=== PATIENT | male | born 1975 | race Caucasian/White ===

== ENCOUNTER → 2020-08-13 15:58 | Outpatient (CLI) | payer OTHER, MEDICAID, SELFPAY ==
--- NOTE | 2020-08-13 16:14 | MRI_ITS ---
HISTORY: neck and arm pain- left side TECHNIQUE: Routine MRI of the cervical spine was performed without IV contrast. COMPARISON: None FINDINGS: Number of images including paperwork: 250 ALIGNMENT: Unremarkable. VERTEBRAL BODIES: Unremarkable. INTERVERTEBRAL DISCS, SPINAL CANAL AND FORAMINA: C2-3: No significant disc bulging, canal or foraminal stenosis. C3-4: No significant disc bulging, canal or foraminal stenosis. C4-5: No significant disc bulging, canal or foraminal stenosis. C5-6: Mild disc bulging. Bilateral uncovertebral spurring moderate to severe left foraminal stenosis. No significant canal stenosis. C6-7: Mild disc bulging. Bilateral uncovertebral spurring with mild to moderate right and severe left foraminal stenosis. No significant canal stenosis. C7-T1: No significant disc bulging, canal or foraminal stenosis. Bilateral perineural cysts. SPINAL CORD: Unremarkable. MRI/Spine Cervical (Routine) IMPRESSION: No acute findings. Cervical spondylosis, as detailed. at 0645 Reported and signed by: Nory Dubon MD Electronically Signed: Nory Dubon MD at 6:45 EST Tel , Service support ,
--- NOTE | 2020-08-13 16:15 | RAD_ITS ---
STUDY: X-RAY - PELVIS AND LEFT HIP REASON FOR EXAM: Male, 45 years old. left hip pain TECHNIQUE: 3 views of the pelvis and hip. COMPARISON: None. FINDINGS: There is a non-specific bowel gas pattern. Normal visualized soft tissue structures. Normal bilateral iliac wings, sacroiliac joints and visualized sacrum. Normal bilateral superior and inferior pubic rami. Normal pubic symphysis. Normal bilateral ischial tuberosities. Normal visualized femoral head. Normal acetabulum. Normal hip joint. RAD/HIP, UNI W/ Pelvis 2-3 Views IMPRESSION: Normal x-ray examination of the pelvis and hip. Electronically Signed: Rolan Michaels MD at 16:45 EST Tel , Service support ,
--- NOTE | 2020-08-13 16:15 | MRI_ITS ---
HISTORY: back pain, leg pain- left side COMPARISON: None TECHNIQUE: Multiplanar, multisequence MRI of the lumbar spine without IV contrast. FINDINGS: No bone marrow edema or suspicious bone lesion. Conus ends at L1. Moderate discogenic degenerative changes at T10-11 and T11-12. T12-L1: No significant disc bulge, canal or foraminal stenosis. L1-L2: Mild disc space narrowing. Schmorl's node noted in the superior endplate of L2. No significant posterior disc bulging. No canal or foraminal stenosis. L2-L3: Disc desiccation with mild disc space narrowing and minimal disc bulging. Facet arthropathy. No significant canal or foraminal stenosis. Bilateral perineural cysts. L3-L4: No significant disc space narrowing, disc bulging, canal or foraminal stenosis. Facet arthropathy. L4-L5: Mild disc space narrowing with central disc protrusion. Facet arthropathy. Mild effacement of the anterior thecal sac. No significant foraminal stenosis. L5-S1: Advanced disc space narrowing with posterior disc osteophyte complex. Facet arthropathy. No significant canal stenosis. Mild bilateral foraminal narrowing without MR evidence of nerve root impingement. Perineural cysts noted at S2 on the left. MRI/Spine Lumbar (Routine) IMPRESSION: 1. No acute findings. 2. Lumbar spondylosis, as detailed. at 0800 Reported and signed by: Nory Dubon MD Electronically Signed: Nory Dubon MD at 8:00 EST Tel , Service support ,
== END ==
PROVIDERS: Referring Provider Anesthesiology Pain Medicine; Visit Provider Anesthesiology Pain Medicine
DX: M54.2 Cervicalgia (principal); M54.9 Dorsalgia, unspecified; M79.603 Pain in arm, unspecified; M79.606 Pain in leg, unspecified; M25.552 Pain in left hip
CPT/HCPCS: 72141; 72148; 73502

== ENCOUNTER → 2020-09-17 10:14 | Outpatient (CLI) | payer OTHER, MEDICAID, SELFPAY ==
[2020-09-17 11:09] LABS: Amphetamine Urine VISTA NEGATIVE (<1000 ng/mL); Barbiturate Urine VISTA NEGATIVE (< 200 ng/mL); Benzodiazepine Urine VISTA POSITIVE (< 200 ng/mL); Cocaine Urine VISTA NEGATIVE (< 300 ng/mL); Ecstacy Urine VISTA NEGATIVE (< 500 ng/mL); Methadone Urine VISTA NEGATIVE (< 300 ng/mL); PCP Urine VISTA NEGATIVE (< 25 ng/mL); THC Urine VISTA NEGATIVE (< 50 ng/mL); Vista UDS pH Range 6
== END ==
PROVIDERS: Referring Provider Anesthesiology Pain Medicine; Visit Provider Anesthesiology Pain Medicine
DX: F11.20 Opioid dependence, uncomplicated (principal)
CPT/HCPCS: 80307

== ENCOUNTER → 2020-10-12 11:54 | Outpatient (CLI) | payer OTHER, MEDICAID, SELFPAY ==
[2020-10-12 14:59] LABS: Absolute Lymphocyte Count 2.34 X10^3/uL (0.83-4.51); Absolute Neutrophil Count 4.9 X10^3/uL (2.0-7.7); Basophil# 0.05 X10^3/uL; Basophil% 0.6 % (0-1); Eosinophil# 0.17 X10^3/uL; Eosinophils% 2.1 % (0-5); Hematocrit 45.5 % (40-54); Hemoglobin 14.7 g/dL (13.0-16.5); Lymphocyte # 2.34 X10^3/ul (4.0); Lymphocyte % 28.5 % (19-41); Mean Corp Hgb Conc 32.3 g/dL (32-36); Mean Corpuscular Hgb 30.7 pg (27.0-32.0); Mean Platelet Vol. 10.5 fl (6.2-12.0); Monocyte# 0.75 X10^3/uL; Monocyte% 9.1 % (0-10); NRBC Flagged by Analyzer 0 % (0-5); Neutrophil # 4.86 X10^3/uL (2.7-7.7); Neutrophil % 59.3 % (47-70); Platelet Count 269 K/mm3 (150-450); RBC Distribution Width CV 13.2 % (11.6-14.6); RBC Distribution Width SD 46.5 fl (35.1-43.9); Red Blood Count 4.79 M/mm3 (4.6-6.2); White Blood Count 8.2 K/mm3 (4.4-11.0)
[2020-10-12 15:06] LABS: Erythrocyte Sedimentation Rate 2 mm/hr (0-20)
[2020-10-12 15:34] LABS: ALB/GLOB Ratio 1.4 RATIO (0.9-2.4); AST(SGOT) 32 U/L (15-37); Alanine Aminotransfer ALT/SGPT 43 U/L (16-61); Albumin, Serum 4.2 g/dL (3.2-5.0); Alkaline Phosphatase 73 U/L (45-117); Anion Gap 6 (5-15); BUN 12 mg/dL (7-18); BUN/Creat Ratio 11.9 RATIO (10-20); CRP < 2.90 mg/L (0.0-3.0); Calcium,Total 8.8 mg/dL (8.5-10.1); Chloride 105 mmol/L (98-107); Creatinine, Serum 1.01 mg/dL (0.70-1.30); EST Glomerular Filtration Rate 86 mL/min (>60); Est Glom Filt Rate - Afr Amer 104 mL/min (>60); Globulin 2.9 g/dL (2.2-4.2); Glucose 83 mg/dL (74-106); Potassium 3.6 mmol/L (3.5-5.1); Protein, Total 7.1 g/dL (6.4-8.2); Rheumatoid Factor < 10.0 IU/mL (<15); Sodium Level 140 mmol/L (136-145)
[2020-10-12 15:43] LABS: Hepatitis B Surface Antibody Non-Reactive; Hepatitis B Surface Antigen Non-Reactive (Nonreactive); Hepatitis C Antibody Non-Reactive (Nonreactive)
[2020-10-14 15:46] LABS: ANTINUCLEAR ANTIBODIES DIRECT Negative (Negative)
[2020-10-16 15:05] LABS: CCP IgG Antibodies 4 units (0-19); Hepatitis B Core AB IgM Negative (Negative)
== END ==
PROVIDERS: Referring Provider Internal Medicine Rheumatology; Visit Provider Internal Medicine Rheumatology
DX: M06.4 Inflammatory polyarthropathy (principal); M47.897 Other spondylosis, lumbosacral region; M48.061 Spinal stenosis, lumbar region without neurogenic claudication; M50.30 Other cervical disc degeneration, unspecified cervical region; F41.9 Anxiety disorder, unspecified; R51.9 Headache, unspecified
CPT/HCPCS: 36415; 80053; 85025; 85652; 86038; 86140; 86200; 86431; 86705; 86706; 86803; 87340

== ENCOUNTER → 2020-11-30 10:05 | Outpatient (CLI) | payer OTHER, MEDICAID, SELFPAY ==
[2020-11-02 10:25] VITALS: BMI 24.2
--- NOTE | 2020-11-30 10:06 | MRI_ITS ---
STUDY: MRI THORACIC SPINE WITHOUT CONTRAST REASON FOR EXAM: Male, 45 years old. pain TECHNIQUE: Standardized fat and water weighted pulse sequences were obtained in the sagittal and axial planes. COMPARISON: None. FINDINGS: Normal kyphosis of the thoracic spine. There is no substantial scoliosis. T1-2, T2-3, T3-4, T4-5, T5-6, T6-7, T7-8, T8-9, T9-10, T10-11, T11-12: T3/T4, there is a mild bilobed disc protrusion which produces mild spinal stenosis but no cord compression. At T5/T6 there is a 6 mild bilobed disc protrusion asymmetric to the left which produces mild spinal stenosis but no cord compression. At T6/T7 there is a mild broad disc protrusion which produces mild spinal stenosis but no cord compression. At T8/T9, there is a mild bilobed disc protrusion which produces mild spinal stenosis but no cord compression. At T10/T11 and T11/T12 there mild bilobed disc protrusion which produces mild spinal stenosis but no cord compression. Normal visualized thoracic cord. Normal conus medullaris that terminates at the L1.. The soft tissue structures are unremarkable. MRI/Spine Thoracic (Routine) IMPRESSION: Mild degenerative disc disease at multiple levels but no cord compression. Electronically Signed: Rloan Michaels MD at 12:55 EDT Tel , Service support ,
== END ==
PROVIDERS: Referring Provider Orthopaedic Surgery; Visit Provider Orthopaedic Surgery
DX: M54.6 Pain in thoracic spine (principal); G89.29 Other chronic pain
CPT/HCPCS: 72146

== ENCOUNTER 2021-01-10 09:30 | Outpatient (RCR) | payer OTHER, MEDICAID, SELFPAY ==
--- NOTE | 2020-10-12 11:30 | HP.PTEVAL_ITS ---
Patient's Visit Information MARY VASQUEZ is a 45 year old M referred to Physical Therapy by Dr. Ketan Chand MD with a diagnosis of NECK AND BACK PAIN. Date of Evaluation: 10/12/20 Physical Therapist: Ana Reyes PT, Cert MDT - Visit Plan Frequency: 1x/Week Duration: 2 Months Plan: NO TRACTION. MODALITIES NEEDED. PATIENT HAS AN HOUR DRIVE AND CAN ONLY COME ONE TIME/WK. POSTURE CORRECTION/STRENGTHENING, INSTRUCTION IN APPROPRIATE BODY MECHANICS AND ACTIVITY MODIFICATIONS. DLS STARTING WITH A NEUTRAL SPINE PROGRESSING ROM TOLERATED. JAVED UE AND LE ROM, STRETCHING AND STRENGTHENING. HEP INSTRUCTION. - Subjective Work/Leisure: [employer]. LIFTING UP TO ABOUT 20 LBS. MOSTLY STANDING. FAST PACED. CURRENTLY NOT OFF WORK. Disability: NO. Present symptoms: NECK PAIN. UPPER BACK PAIN. L UE PAIN, NUMBNESS AND TINGLING IN WHOLE ARM. LOW BACK PAIN. NO LONGER HAVING LEG SX'S. JAVED SHLD PAIN. Present since: ABOUT 10 YEARS AGO. Pain Scale: WORST 9/10, LEAST 2/10. Currently: 3/10 UPPER BACK, LOW BACK AND SHOULDERS. Commenced as a result of: WORK. Symptoms at onset: LOW BACK PAIN. Worse: WHEN I MOVE MY NECK A CERTAIN WAY, DRIVING, SITTING, ACTIVITY, LOOKING DOWN, LOOKING UP CAUSES A SHOT OF PAIN THROUGH MY ARM, BENDING. Better: MASSAGE THERAPY HELPED UPPER BACK TODAY BUT NOT LOWER BACK, INJECTIONS AND PILLS. Disturbed sleep: YES. Previous history/Previous treatment: PAIN MGMT. NECK AND LOW BACK INJECTIONS (LAST INJECTIONS WERE IN JUL 2020), NO SPINE SURGERY. PT IN THE PAST IN [facility] AND IT MADE IT WORSE YEARS AGO. CHIROPRACTOR FOR ABOUT 10 YEARS AND CURRENTLY GOING ONCE A WEEK BUT EVERYTHING JUST GOES BACK TO THE WAY IT WAS. DRY NEEDLING - DIDN'T HELP. Coughing/sneezing/straining: POSITIVE. Gait: SOMETIMES CAN WALK NORMALLY BUT PAIN CAUSES LIMPTING LLE > RIGHT. Difficulty initiating urinatin: NO. DIZZINESS: SOMETIMES. TINNITIS: YES. DIFFICULTY SWOLLOWING - NO. SHORTNESS OF BREATH - NO. Accidents: NO. Unexplained weight loss: NO. Imaging: Routine MRI of the cervical spine was performed without IV contrast. COMPARISON: None. FINDINGS: Number of images including paperwork: 250. ALIGNMENT: Unremarkable. VERTEBRAL BODIES: Unremarkable. INTERVERTEBRAL DISCS, SPINAL CANAL AND FORAMINA: C2-3: No significant disc bulging, canal or foraminal stenosis. C3-4: No significant disc bulging, canal or foraminal stenosis. C4-5: No significant disc bulging, canal or foraminal stenosis. C5- 6: Mild disc bulging. Bilateral uncovertebral spurring moderate to. severe left foraminal stenosis. No significant canal stenosis. C6-7: Mild disc bulging. Bilateral uncovertebral spurring with mild to. moderate right and severe left foraminal stenosis. No significant canal. stenosis. C7-T1: No significant disc bulging, canal or foraminal stenosis. Bilateral. perineural cysts. SPINAL CORD: Unremarkable. MRI/Spine Cervical (Routine). IMPRESSION: No acute findings. Cervical spondylosis, as detailed. . at 0645 . Reported and signed by: Nory Dubon MD. . Electronically Signed: Nory Dubon MD. at 6:45 EST. Normal x-ray examination of the pelvis and hip. . Multiplanar, multisequence MRI of the lumbar spine without IV. contrast. FINDINGS: No bone marrow edema or suspicious bone lesion. Conus ends at L1. Moderate discogenic degenerative changes at T10-11 and T11-12. T12-L1: No significant disc bulge, canal or foraminal stenosis. L1-L2: Mild disc space narrowing. Schmorl's node noted in the superior. endplate of L2. No significant posterior disc bulging. No canal or. foraminal stenosis. L2-L3: Disc desiccation with mild disc space narrowing and minimal disc. bulging. Facet arthropathy. No significant canal or foraminal stenosis. Bilateral perineural cysts. L3-L4: No significant disc space narrowing, disc bulging, canal or. foraminal stenosis. Facet arthropathy. L4-L5: Mild disc space narrowing with central disc protrusion. Facet. arthropathy. Mild effacement of the anterior thecal sac. No significant. foraminal stenosis. L5- S1: Advanced disc space narrowing with posterior disc osteophyte. complex. Facet arthropathy. No significant canal stenosis. Mild bilateral. foraminal narrowing without MR evidence of nerve root impingement. Perineural cysts noted at S2 on the left. MRI/Spine Lumbar (Routine). IMPRESSION: 1. No acute findings. 2. Lumbar spondylosis, as detailed. . at 0800 . Reported and signed by: Nory Dubon MD. . Electronically Signed: Nory Dubon MD. at 8:00 EST. PMH: ANXIETY, PLATES PLACE IN L SIDE OF HEAD BUT PATIENT DOES NOT WANT TO TALK ABOUT WHY. R KNEE SX 2018 - FULLY RECOVERED. MULTIPLE R WRIST FX'S. OTHER: PATIENT HAD MASSAGE THERAPY BEFORE PT SESSION TODAY. PATIENT REPORTS HE LIVES AN HOUR AWAY. HAS BOFLEX AT HOME. - Objective Sitting/Standing Posture: POOR. FH. RS'S. Lordosis: REDUCED. Lateral shift: NO. Relevant shift: N/A. Active Correction of posture: INCREASES NECK AND UPPER BACK PAIN. Other Observations: INDEP GAIT AND TRANSFERS WITH NO GROSS DEVIATIONS NOTED. Motor deficit: JAVED UE AND LE STRENGTH GROSSLY 5/5 WITH MMT'ING BUT PATIENT C/O INCREASED LOW BACK PAIN WITH HIP TESTING AND INCREASED NECK PAIN WITH SHLD TESTING. JAVED MAGNETIC TESTING TECHNICIAN STRENGTH APPROX 90 LBS. Sensory deficit: PATIENT REPORTS JAVED UE AND LE LIGHT TOUCH SENSATION INTACT AND SYMMETRICAL WITH TESTING TODAY. ROM deficit: TIGHT JAVED HS'S AND GASTROC SOLEUS COMPLEX'S. TIGHT JAVED SHLD WITH APPROX 70% ROM JAVED. Dural Signs: POSITIVE JAVED UE'S AND LE'S. Lumbar mvmt loss: flex - MIN. ext - ADALGISA. R SG - ADALGISA. L SG - MOD. CERVICAL MVMT LOSS: FLEX - NIL. PRO - NIL. EXT - MOD. RET - MOD. R SB - MIN. L SB - MOD. R ROT - MIN. L ROT - MOD. Core strength: FAIR. Palpation: NO ACUTE SPINE TENDERNESS AND PATIENT REPORTS HE HAS NEVER BEEN TENDER. TREATMENT: NEUROMUSCULAR REEDUCATION - RETRAINING OF MVMT AND POSTURE FOR SITTING, LYING AND STANDING ACTIVITIES. - Goals Goal 1:: DECREASE C/O NECK, BACK, UE AND LE SX'S. Goal Time Frame: 4-6 Weeks Goal 2:: IMPROVE PERSONAL CARE, LIFTING, DRIVING, SITTING, STANDING, SLEEP, SOCIAL LIFE, TRAVEL, WORK AND HOMEMAKING FUNCTION. Goal Time Frame: 4-6 Weeks Goal 3:: INSTRUCT IN PROPHYLAXIS Goal Time Frame: 4-6 Weeks - Anticipated Interventions Patient/Client Instruction: Educate patient on: Condition, Plan of Care For the Purpose of:: To improve self management Therapeutic Exercise to Include: Strength training, Body mechanics, Postural training, Flexibilty training, Neuromotor development, Dynamic Lumbar Stabilization For the Purpose of:: To decrease pain, To increase ROM, To increase tolerance to activity/condition/position, To improve ability of physical actions for home/community/work/leisure TENS: Yes IF ES: Yes Cryotherapy (ice pack, ice massage): Yes Thermo therapy (hot pack): Yes Ultrasound (thermal/non thermal): Yes For the Purpose of:: To decrease pain, To improve nutrient delivery to tissue Thank you for the opportunity to evaluate your patient. For Medicare and Medicare HMO plans, please review the plan of care and approve it. It will need to be FAXED BACK to us at [phone] for Medicare purposes. For Medicare only, by signing this I certify the plan of care. Please let me know if there are questions or concerns regarding this plan of care. Physician Signature: Date:
--- NOTE | 2020-11-29 10:31 | HP.PTREVAL_ITS ---
Dr. Ketan Chand MD, It has been my pleasure to treat MARY VASQUEZ over the last 7 visits for NECK AND BACK PAIN. Please see the progress note below for an update on the physical therapy plan of care! Subjective: I'M GETTING BETTER. MY LOWER BACK HAS MADE A LOT OF IMPROVEMENT'. I HAVEN'T BEEN FEELING MUCH IN MY ARMS LATELY. MY THORACIC IS KILLING ME. HAVING THORACIC MRI TOMORROW. PATIENT REPORTS HE HAS BEEN ABLE TO INCREASE HIS SITTING TIME. 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 PATIENT STATES HE FEELS HE WOULD BENEFIT FROM CONTINUING PT. PATIENT REPORTS IT TAKES A LOT OF REPETITIONS OF THE EX'S TO START TO GET MORE ROM. Objective/Function: PATIENT WAS SEEN TODAY FOR RE-ASSESSMENT OF PROGRESS TOWARD THE SET PT GOALS AND THE NEED FOR FURTHER PHYSICAL THERAPY VS READINESS FOR DISCHARGE. THIS PATIENT IS MAKING SLOW PROGRESS TOWARD PT GOALS AND IS A GOOD CANDIDATE TO CONTINUE PT BASED ON PROGRESS MADE AND ROOM FOR FURTHER IMPROVEMENT. UPON EXAM TODAY: Motor deficit: JAVED UE AND LE STRENGTH GROSSLY 5/5 WITH MMT'ING AND NO PATIENT C/O INCREASED LOW BACK PAIN WITH HIP TESTING AND INCREASED NECK PAIN WITH SHLD TESTING THIS DATE. Sensory deficit: PATIENT REPORTS JAVED UE AND LE LIGHT TOUCH SENSATION INTACT AND SYMMETRICAL . ROM deficit: TIGHT JAVED HS'S AND GASTROC SOLEUS COMPLEX'S. TIGHT JAVED SHLD WITH APPROX 90% ROM JAVED. Dural Signs: NEGATIVE JAVED UE'S AND LE'S. Lumbar mvmt loss: flex - ALMOST FULL. ext - MOD. R SG - MIN. L SG - MIN. PATIENT DENIES INCREASED LOW BACK PAIN OR LE SX'S WITH LUMBAR ROM TESTING TODAY. CERVICAL MVMT LOSS: FLEX - NIL. PRO - NIL. EXT - MOD. RET - MOD. R SB - MIN. L SB - MOD. R ROT - MIN. L ROT - MOD. PATIENT C/O INCREASED PAIN WITH R SB TESTING. Core strength: FAIR. Palpation: NO ACUTE SPINE TENDERNESS AND PATIENT REPORTS HE HAS NEVER BEEN TENDER. Plan Plan: CONT 1X/WK X 4 WKS. NO TRACTION. NO SUPINE LEG PRESS OR OVER-HEAD PRESS. US NEEDED. PATIENT HAS AN HOUR DRIVE AND CAN ONLY COME ONE TIME/WK. POSTURE CORRECTION/STRENGTHENING, INSTRUCTION IN APPROPRIATE BODY MECHANICS AND ACTIVITY MODIFICATIONS. DLS STARTING WITH A NEUTRAL SPINE PROGRESSING ROM TOLERATED. JAVED UE AND LE ROM, STRETCHING AND STRENGTHENING. HEP INSTRUCTION. Goals Goal 1:: DECREASE C/O NECK, BACK, UE AND LE SX'S. Goal Time Frame: 4-6 Weeks Goal Progress: Progressing Goal 2:: IMPROVE PERSONAL CARE, LIFTING, DRIVING, SITTING, STANDING, SLEEP, SOCIAL LIFE, TRAVEL, WORK AND HOMEMAKING FUNCTION. Goal Time Frame: 4-6 Weeks Goal Progress: Progressing Goal 3:: INSTRUCT IN PROPHYLAXIS Goal Time Frame: 4-6 Weeks Goal Progress: Progressing Anticipated Interventions Patient/Client Instruction: Educate patient on: Condition, Plan of Care For the Purpose of:: To improve self management Therapeutic Exercise to Include: Strength training, Body mechanics, Postural training, Flexibilty training, Neuromotor development, Dynamic Lumbar Stabilization For the Purpose of:: To decrease pain, To increase ROM, To increase tolerance to activity/condition/position, To improve ability of physical actions for h ome/community/work/leisure TENS: Yes IF ES: Yes Cryotherapy (ice pack, ice massage): Yes Thermo therapy (hot pack): Yes Ultrasound (thermal/non thermal): Yes For the Purpose of:: To decrease pain, To improve nutrient delivery to tissue Please do not hesitate to contact me at [phone] by phone or if you have questions or concerns regarding this new plan of care! Sincerely, Ana Reyes, PT, Cert MDT
--- NOTE | 2021-01-10 10:15 | HP.PTDCSUM_ITS ---
It has been my pleasure to treat MARY VASQUEZ referred by Dr. Ketan Chand MD, with the diagnosis of NECK AND BACK PAIN for a total of 10 visit(s). Discharge Date: 01/10/21 Please see the following information for a summary of their discharge status. Subjective: PATIENT REPORTS HIS PAIN IS WORSE. HE STATES THE MEDICATION INCREASE ENDED UP BEING TOO MUCH. BUT PATIENT REPORTS HE IS DEFINATELY IMPROVED IN TERMS OF HIS EXERCISES AND IS EVEN BACK TO SOME [place]. MODIFIES EX'S FOR WRIST PAIN. NECK Pain Intensity (Out of 10): 7 HEADACHE Pain Intensity (Out of 10): 0 R UE Pain Intensity (Out of 10): 6 L UE Pain Intensity (Out of 10): 0 LOW BACK Pain Intensity (Out of 10): 4 R LE Pain Intensity (Out of 10): 6 L HIP Pain Intensity (Out of 10): 3 % Improvement: 75 Objective/Function: PATIENT WAS SEEN TODAY FOR RE-ASSESSMENT OF PROGRESS TOWARD THE SET PT GOALS AND THE NEED FOR FURTHER PHYSICAL THERAPY VS READINESS FOR DISCHARGE. ALSO REVIEWED HEP, ADDED GTB JAVED SHLD ER AND ISSUED PTB TO PROGRESS ROWS AND PULL DOWNS. PATIENT DEMONSTRATES/COMMUNICATES A GOOD UNDERSTANDING OF ALL HOME INSTRUCTIONS GIVEN TODAY FOR DISCHARGE. UPON EXAM TODAY THERE ARE NO SIGNIFICANT OBJECTIVE CHANGES SINCE LAST RE-CHECK BUT PATIENT IS NOW INDEP WITH A MORE COMPREHENSIVE HEP. SUBJECTIVELY HE IS REPORTING WORSE PAIN IN NECK AND BACK WITH ADL'S. NECK AND BACK OSWESTRY SCORES ARE WORSE TODAY THAN LAST RE- CHECK ABOUT 6 WKS AGO AND PATIENT RELATES THIS TO INCRASED PAIN LEVELS. Goal 1:: DECREASE C/O NECK, BACK, UE AND LE SX'S. Goal Progress: Not Progressing Goal 2:: IMPROVE PERSONAL CARE, LIFTING, DRIVING, SITTING, STANDING, SLEEP, SOCIAL LIFE, TRAVEL, WORK AND HOMEMAKING FUNCTION. Goal Progress: Not Progressing Goal 3:: INSTRUCT IN PROPHYLAXIS Goal Progress: Goal Met Plan: D/C TO CURRENT HEP. PATIENT AGREEABLE. If there are questions or concerns regarding this patient's physical therapy, please feel free to call me at [phone]. Thank you for the referral of this patient. Sincerely, Ana Reyes, PT, Cert MDT
== END 2021-01-10 19:00 | disposition home or self-care (01) ==
LOC: PT 09:30
PROVIDERS: Referring Provider Anesthesiology Pain Medicine; Visit Provider Anesthesiology Pain Medicine
DX: M54.2 Cervicalgia (principal); M54.9 Dorsalgia, unspecified
CPT/HCPCS: 97035; 97110; 97112; 97162; 97164; 97530